=== PATIENT | male | born 1985 | race Caucasian/White ===

== ENCOUNTER → 2017-11-08 11:20 | Outpatient (CLI) | payer OTHER, SELFPAY ==
[2017-11-08 13:08] LABS: Thyroid Stim Hormone (TSH) 3.62 uIU/mL (0.358-3.74)
== END ==
PROVIDERS: Family Provider Family Medicine; PCP Family Medicine; Visit Provider Family Medicine
DX: E03.9 Hypothyroidism, unspecified (principal)
CPT/HCPCS: 36415; 84403; 84443

== ENCOUNTER → 2018-10-24 | Outpatient (CLI) | payer OTHER, SELFPAY ==
[2018-10-24 12:30] LABS: Thyroid Stim Hormone (TSH) 2.32 uIU/mL (0.358-3.74)
== END | disposition home or self-care (01) ==
LOC: LAB 11:16
PROVIDERS: Family Provider Family Medicine; PCP Family Medicine; Referring Provider Family Medicine; Visit Provider Family Medicine
DX: E03.4 Atrophy of thyroid (acquired) (principal)
CPT/HCPCS: 36415; 84443

== ENCOUNTER → 2020-02-06 16:29 | Outpatient (CLI) | payer OTHER, SELFPAY ==
[2020-02-06 18:14] LABS: Thyroid Stim Hormone (TSH) 3.38 uIU/mL (0.358-3.74)
== END ==
PROVIDERS: PCP Family Medicine; Referring Provider Family Medicine; Visit Provider Family Medicine
DX: E03.9 Hypothyroidism, unspecified (principal)
CPT/HCPCS: 36415; 84443

== ENCOUNTER → 2023-06-30 | Outpatient (CLI) | payer OTHER, SELFPAY ==
--- NOTE | 2023-06-30 20:37 | STRESSREP_ITS ---
Stress Test Report Exercise stress test. 37-year-old man with a history of atrial fibrillation flutter Stress protocol: Resting EKG demonstrates normal sinus rhythm with a rate of 95 bpm resting blood pressure is 138/88 mmHg. The patient exercised according to the regular Bradley protocol for a total duration of 9 minutes and 22 seconds attaining a maximum he art rate of 196 bpm which was 108% of maximum predicted heart rate; the maximum workload was 11.3 METS metabolic equivalents. At rest there were no ST or T wave changes noted to suggest ischemia and at peak exercise upsloping ST changes only were noted which did not meet the criteria for ischemia. No clinical angina was noted the test was terminated due to the target heart rate being achieved/fatigue. The peak blood pressure was 206/90 mmHg. Rate-pressure product was 39,700. Conclusion: Exercise stress test with no EKG criteria for ischemia at a high workload. No evidence of cardiac dysrhythmia with exercise.
== END | disposition home or self-care (01) ==
PROVIDERS: PCP Family Medicine; Referring Provider Internal Medicine Cardiovascular Disease; Visit Provider Internal Medicine Cardiovascular Disease
DX: I47.20 Ventricular tachycardia, unspecified (principal); R94.31 Abnormal electrocardiogram [ECG] [EKG]
CPT/HCPCS: 93017

== ENCOUNTER → 2024-12-14 | Outpatient (CLI) | payer OTHER, SELFPAY | END | disposition home or self-care (01) | LOC: LAB 10:26 | PROVIDERS: PCP Family Medicine; Referring Provider Family Medicine; Visit Provider Family Medicine | DX: E03.9 Hypothyroidism, unspecified (principal); I10 Essential (primary) hypertension | CPT/HCPCS: 36415; 84443 ==

== ENCOUNTER → 2024-12-20 | Outpatient (CLI) | payer OTHER, SELFPAY ==
--- NOTE | 2024-12-20 12:38 | CT_ITS ---
PROCEDURE: BRAIN/HEAD W/WO CONTRAST 12/20/2024 REASON FOR EXAM: HTN TECHNIQUE: Procedure Code: CTBRWW Modality: CT Procedure: BRAIN/HEAD W/WO CONTRAST Coronal and Sagittal reconstruction series were provided. CONTRAST: 50 cc Isovue 370 IV. One or more dose reduction techniques were used (e.g., Automated exposure control, adjustment of the mA and/or kV according to patient size, use of iterative reconstruction technique). COMPARISON: None. FINDINGS: No acute intracranial hemorrhage. No midline shift. The ventricles are normal in size and configuration. No extra-axial fluid collection is identified. No fracture. The calvarium is intact. Moderate mucosal thickening within the right maxillary sinus. The remainder of the visualized paranasal sinuses and mastoid air cells are clear. No abnormal enhancement pattern. CT/Brain/Head W/WO Contrast IMPRESSION: No acute intracranial CT abnormality. Moderate right maxillary sinusitis. Reading Location: [id number]
== END | disposition home or self-care (01) ==
LOC: CT 12:37
PROVIDERS: PCP Family Medicine; Referring Provider Internal Medicine Cardiovascular Disease; Visit Provider Internal Medicine Cardiovascular Disease
DX: I10 Essential (primary) hypertension (principal)
CPT/HCPCS: 70470; Q9967